=== PATIENT | female | born 1950 | race Two or more races ===

== ENCOUNTER 2022-11-09 21:17 | Emergency (ER) | payer MEDICARE, BC ==
[~2022-11-09] VITALS: Ht 160 cm; Wt 83.2 kg
--- NOTE | 2022-11-09 23:17 | NUR ---
PATIENT PLACED ON BEDSIDE COMMODE PROVIDED CALL LIGHT TO HELP GET PATIENT BACK TO BED
[2022-11-09 23:28] LABS: BASOPHILS % (AUTO) 0.2 % (0-1); EOSINOPHILS # (AUTO) 0.1 X10'3 (0-0.9); EOSINOPHILS % (AUTO) 0.5 % (0-6); HEMOGLOBIN 13.5 g/dl (12.0-16.0); LYMPHOCYTES # (AUTO) 0.7 X10'3 (1.1-4.8); LYMPHOCYTES % (AUTO) 7.6 % (21-51); MEAN CORPUSCULAR HEMOGLOBIN 29.9 PG (27.0-31.0); MEAN CORPUSCULAR HGB CONC 33.7 g/dL (33.0-36.5); MEAN CORPUSCULAR VOLUME 88.7 FL (78-98); MEAN PLATELET VOLUME 8.6 FL (7.4-10.4); MONOCYTES # (AUTO) 0.6 X10'3 (0-0.9); MONOCYTES % (AUTO) 5.9 % (2-12); NEUTROPHILS # (AUTO) 8.2 X10'3 (1.8-7.7); NEUTROPHILS % (AUTO) 85.8 % (42-75); PLATELET COUNT 190 X10'3 (140-440); RED BLOOD COUNT 4.51 X10'6 (4.20-5.60); RED CELL DISTRIBUTION WIDTH 13.9 % (11.5-14.5); WHITE BLOOD COUNT 9.5 X10'3 (4.5-11.0)
[2022-11-09 23:40] LABS: ALANINE AMINOTRANSFERASE 19 U/L (12-78); ALBUMIN 3.4 G/DL (3.4-5.0); ALBUMIN/GLOBULIN RATIO 1.1 (1.1-1.5); ALKALINE PHOSPHATASE 100 IU/L (46-116); ANION GAP 4 (8-16); ASPARTATE AMINO TRANSFERASE 19 U/L (10-37); BILIRUBIN,TOTAL 0.4 MG/DL (0.1-1.0); BLOOD UREA NITROGEN 21 MG/DL (7-18); BUN/CREATININE RATIO 22.8 (10.0-20.0); CALCIUM 9.1 MG/DL (8.5-10.1); CHLORIDE 104 MMOL/L (99-107); CREATININE 0.92 MG/DL (0.40-0.90); GLUCOSE 92 MG/DL (70-104); POTASSIUM 3.3 MMOL/L (3.5-5.1); SODIUM 141 MMOL/L (135-145); TOTAL CARBON DIOXIDE 33.3 MMOL/L (24-32); TOTAL PROTEIN 6.5 G/DL (6.4-8.2); eGFR 60 ML/MIN
[2022-11-10 01:02] VITALS: BP 150/76
== END 2022-11-10 01:04 | disposition home or self-care (01) ==
LOC: ER 21:18
DX: E11.65 Type 2 diabetes mellitus with hyperglycemia (principal); I10 Essential (primary) hypertension
CPT/HCPCS: 36415; 80053; 82948; 85025; 99283

== ENCOUNTER 2025-02-25 16:50 | Emergency (ER) | payer BC, MEDICARE ==
[~2025-02-25] VITALS: Ht 157.5 cm; Wt 87.2 kg
[2025-02-25 17:00] VITALS: BP 127/70; PULSE 75; TEMP 98.1; O2SAT 95
[2025-02-25] MEDS: bacitracin 15gm ointment TP ONE (18:22)
[2025-02-25 18:24] VITALS: RESP 16
--- NOTE | 2025-02-25 18:29 | Physician Documentation ---
History of Present Illness ~ Chief Complaint: Laceration Stated Complaint: FALL Time Seen by MD: 17:08 HPI Patient is seen today with complaints of a skin tear of her left lateral forearm where she fell on the carpet last night. She states she does take a blood thinner. She denies any head strike and denies any loss of consciousness. She has no other concern or complaint at this time. Tetanus Within 5 Years: Yes Medication Reconciliation Allergies: Coded Allergies: No Known Allergies (Unverified , 11/09/22) Past Medical History Past Medical History: Hypertension, Diabetes Past Surgical History: pacemaker Alcohol Use: None Drug Use: none Review of Systems Constitutional: Denies: chills, fever, weakness Eyes: Denies: pain, blurred vision ENT: Denies: ear pain, nose pain, throat pain, mouth pain Respiratory: Denies: cough, shortness of breath Cardiovascular: Denies: chest pain, palpitations Gastrointestinal: Denies: abdominal pain, nausea, vomiting Genitourinary: Denies: burning, dysuria Female Genitalia: Denies: vaginal discharge, pelvic pain Neurological: Denies: headache, dizziness Musculoskeletal: Denies: pain, swelling Integumentary: Denies: rash, lesions Allergic/Immunologic: Denies: hives, itching Hematologic/Lymphatic: Denies: no symptoms reported Psychiatric: Denies: depression, anxiety Physical Exam Vital Signs: Temperature: 98.1, Source: Temporal, Heart Rate: 75, Respiratory Rate: 16, BP: 127/70, Pulse Oximetry: 95, Weight: 87.200 Oxygen Flow Rate: 0 Physical Exam General: Awake and Alert, no acute distress. HEENT: Conjunctiva pink, Sclera clear, Mucus Membranes moist. Neck: Supple without masses and tenderness. Resp: Unlabored. Lungs clear to auscultation bilaterally. Heart: Regular Rate and rhythm, normal S1 and S2 without murmur, rub or gallop. Extremities: No cyanosis,clubbing or edema. Skin: Patient on exam has a small skin tear proximally 1.5 cm in length and 1 cm in diameter of the left lateral forearm proximally. Patient does have minimal bleeding at this time. Progress Results/Orders Results/Orders Completed Orders - MANJULA MATHIS Bacitracin Ointment (Bacitracin Ointment (02/25/25 18:00) Vital Signs 02/25/25 17:00 Temp 98.1 Pulse 75 Resp 16 B/P (MAP) 127/70 Pulse Ox 95 O2 Flow Rate 0 Medical Decision Making Findings Patient is seen today with complaints of a skin tear of her left lateral forearm where she fell on the carpet last night. She states she does take a blood thinner. She denies any head strike and denies any loss of consciousness. She has no other concern or complaint at this time. Patient did have wound dressed and cleaned by myself today as well as wound supplies sent home with the patient. Patient will perform daily dressing changes and will follow up with primary care in 2-3 days for wound check and/or return to the ED for wound check. Return to the ED with any worsening, concerning or changing symptoms. Departure Disposition: HOME / SELF CARE / HOMELESS Impression: Primary Impression: Skin tear Condition: Improved Discharge Instructions: Laceration Care, Adult, [id number] Additional Instructions: Patient did have wound dressed and cleaned by myself today as well as wound supplies sent home with the patient. Patient will perform daily dressing changes and will follow up with primary care in 2-3 days for wound check and/or return to the ED for wound check. Return to the ED with any worsening, concerning or changing symptoms. Referrals: NO PRIMARY CARE PROVIDER (PCP) Signature Scribe Signature: No scribe Attestation: No scribe MANJULA MATHIS PAC Feb 25, 2025 18:29
== END 2025-02-25 18:49 | disposition home or self-care (01) ==
LOC: ER 16:51
DX: S51.812A Laceration without foreign body of left forearm, initial encounter (principal); E11.9 Type 2 diabetes mellitus without complications; I10 Essential (primary) hypertension; Z95.0 Presence of cardiac pacemaker; W19.XXXA Unspecified fall, initial encounter; Y93.89 Activity, other specified; Y92.89 Other specified places as the place of occurrence of the external cause; Y99.8 Other external cause status
CPT/HCPCS: 99282; A6222; A6258; A6449

== ENCOUNTER 2025-02-26 15:12 | Emergency (ER) | payer MEDICARE ==
[~2025-02-26] VITALS: Ht 157.5 cm; Wt 64.0 kg
[2025-02-26 15:27] VITALS: PULSE 67; RESP 16; O2SAT 92
--- NOTE | 2025-02-26 15:53 | Physician Documentation ---
History of Present Illness ~ Chief Complaint: Wound Re-Check Stated Complaint: RECHECK Time Seen by MD: 15:39 HPI Patient is seen today for wound recheck of the left forearm. Patient was seen last night and wound was bandaged last night. Patient states the bandage shifted and she was concerned and wanted it rechecked. She states she has no one at home and has poor eyesight. She has no other concern or complaint at this time. Tetanus within 5 years?: Yes Medication Reconciliation Allergies: Coded Allergies: No Known Allergies (Unverified , 02/26/25) Past Medical History Past Medical History: Hypertension, Diabetes Past Surgical History: pacemaker Alcohol Use: None Drug Use: none Review of Systems Constitutional: Denies: chills, fever, weakness Eyes: Denies: pain, blurred vision ENT: Denies: ear pain, nose pain, throat pain, mouth pain Respiratory: Denies: cough, shortness of breath Cardiovascular: Denies: chest pain, palpitations Gastrointestinal: Denies: abdominal pain, nausea, vomiting Genitourinary: Denies: burning, dysuria Female Genitalia: Denies: vaginal discharge, pelvic pain Neurological: Denies: headache, dizziness Musculoskeletal: Denies: pain, swelling Integumentary: Denies: rash, lesions Allergic/Immunologic: Denies: hives, itching Hematologic/Lymphatic: Denies: no symptoms reported Psychiatric: Denies: depression, anxiety Physical Exam Vital Signs: Temperature: 96.7, Source: Temporal, Heart Rate: 67, Respiratory Rate: 16, Pulse Oximetry: 92, Weight: 64.050 Physical Exam General: Awake and Alert, no acute distress. HEENT: Conjunctiva pink, Sclera clear, Mucus Membranes moist. Neck: Supple without masses and tenderness. Resp: Unlabored. Lungs clear to auscultation bilaterally. Extremities: No cyanosis,clubbing or edema. Skin: Skin tear on extensor surface of left forearm appears to be healing well in his no longer actively bleeding. Patient has no surrounding erythema or induration or sign of infection. Progress Results/Orders Results/Orders Completed Orders - MANJULA MATHIS Bacitracin Ointment (Bacitracin Ointment (02/26/25 15:39) Vital Signs 02/26/25 15:27 Temp 96.7 Pulse 67 Resp 16 Pulse Ox 92 Medical Decision Making Findings Patient is seen today for wound recheck of the left forearm. Patient was seen last night and wound was bandaged last night. Patient states the bandage shifted and she was concerned and wanted it rechecked. She states she has no one at home and has poor eyesight. She has no other concern or complaint at this time. Bacitracin and Band-Aid were placed over small skin tear. Patient will change bandage daily. Follow up with primary care in 2-3 days or return to ED for wound check. Departure Disposition: HOME / SELF CARE / HOMELESS Impression: Primary Impression: Skin tear Condition: Improved Discharge Instructions: Wound Care, Adult Additional Instructions: Bacitracin and Band-Aid were placed over small skin tear. Patient will change bandage daily. Follow up with primary care in 2-3 days or return to ED for wound check. Referrals: NO PRIMARY CARE PROVIDER (PCP) Signature Scribe Signature: No scribe Attestation: No scribe MANJULA MATHIS PAC Feb 26, 2025 15:53
[2025-02-26 16:30] VITALS: TEMP 96.7
[2025-02-26] MEDS: bacitracin 15gm ointment TP STA (16:30)
== END 2025-02-26 16:33 | disposition home or self-care (01) ==
LOC: ER 15:12
DX: S51.812D Laceration without foreign body of left forearm, subsequent encounter (principal); E11.9 Type 2 diabetes mellitus without complications; I10 Essential (primary) hypertension; Z95.0 Presence of cardiac pacemaker; X58.XXXD Exposure to other specified factors, subsequent encounter
CPT/HCPCS: 99282

== ENCOUNTER 2025-03-05 19:26 | Emergency (ER) | payer MEDICARE ==
[~2025-03-05] VITALS: Ht 157.5 cm; Wt 90.9 kg
[2025-03-05 19:37] VITALS: BP 176/87; PULSE 65; RESP 18; O2SAT 95
--- NOTE | 2025-03-05 21:49 | Physician Documentation ---
History of Present Illness ~ Chief Complaint: Finger pain Stated Complaint: FINGER PAIN Time Seen by MD: 21:41 HPI 74-year-old female that presents to the emergency department for evaluation of swelling to the 2nd digit on her right hand. Patient reports that she has had some tenderness and swelling to the distal joint on the 2nd digit of her right hand for a day. Reports that she called her primary care provider's office and has an appointment for Monday but they told her if the finger become swollen to report to the emergency department. Patient reports that she does have a history of arthritis. She denies any known traumatic injuries to the finger. Tetanus within 5 years: Yes Medication Reconciliation Allergies: Coded Allergies: No Known Allergies (Unverified , 02/26/25) Scheduled Cephalexin*Monohydrate* (Keflex*), 1 CAP PO QID Past Medical History Past Medical History: Hypertension, Diabetes Past Surgical History: pacemaker Alcohol Use: None Drug Use: none Review of Systems ROS As stated above in the HPI, otherwise all systems are reviewed and negative. Physical Exam Vital Signs: Temperature: 97.5, Heart Rate: 65, Respiratory Rate: 18, BP: 176/87, Pulse Oximetry: 95, Weight: 90.900 Oxygen Flow Rate: 0 Physical Exam VITALS: Reviewed and as above. GENERAL: Alert, no apparent distress. HEENT: Normocephalic, atraumatic, PERRL, EOMI, dry mucosa, no erythema RESPIRATORY: Lungs clear, normal breath sounds, no respiratory distress. CHEST: No accessory muscle use, no retractions CV: Regular rate, rhythm, no edema, no murmur, No: JVD GI: Soft, non-tender, bowels sounds present, no rebound, guarding, or rigidity BACK: No CVA tenderness, or swelling MUSCULOSKELETAL No deformities, interphalangeal joint demonstrates mild derangement consistent with arthritic changes, swelling noted to the 2nd joint of the 2nd digit on the right hand., redness or warmth noted. He is tender with examination. SKIN: Warm and dry, no rash NEURO: Oriented x4, No motor or sensory deficit PSYCH: Normal mood and affect, no agitation Progress Results/Orders Results/Orders Vital Signs 03/05/25 19:37 Temp 97.5 Pulse 65 Resp 18 B/P (MAP) 176/87 Pulse Ox 95 O2 Flow Rate 0 Medical Decision Making Findings Patient presents with interphalangeal joint pain 2nd digit on the right hand. Given history, exam and workup patient likely has arthritis. I have low suspicion for fracture, dislocation, significant ligamentous injury, septic arthritis, gout flare, new autoimmune arthropathy, or gonococcal arthropathy. We will follow up with her primary care provider on Monday. Patient will return to the emergency department with any worsening or recurrent symptoms or any additional concerning symptoms that we discussed here today i.e. increased swelling increased redness warmth fever chills or any other concerning symptoms. Discussed with the patient that we would prescribe an antibiotic to her pharmacy but to please wait and discussed with her primary care provider on if symptoms worsen. Ibuprofen 600 mg every 6 hours as needed for inflammation and discomfort. General Diff Dx:Considerations: Include: Abrasion, Contusion, Fracture, Hematoma, Laceration, Malunion, Neurovascular injury, Open fracture, Sprain, Ulcer, Other Finger Diff Dx:Considerations: Include: Abrasion, Cellulitis, Contusion, Dislocation, Fracture, Hematoma, Laceration, Neurovascular injury, Open fracture, Subungual hematoma, Other Departure Disposition: HOME / SELF CARE / HOMELESS Impression: Primary Impression: Swollen finger Additional Impressions: Arthritis Tenderness Condition: Stable Discharge Instructions: Arthritis, [id number] Additional Instructions: Patient presents with interphalangeal joint pain 2nd digit on the right hand. Given history, exam and workup patient likely has arthritis. I have low ascencio spicion for fracture, dislocation, significant ligamentous injury, septic arthritis, gout flare, new autoimmune arthropathy, or gonococcal arthropathy. We will follow up with her primary care provider on Monday. Patient will return to the emergency department with any worsening or recurrent symptoms or any additional concerning symptoms that we discussed here today i.e. increased swelling increased redness warmth fever chills or any other concerning symptoms. Discussed with the patient that we would prescribe an antibiotic to her pharmacy but to please wait and discussed with her primary care provider on if symptoms worsen. Ibuprofen 600 mg every 6 hours as needed for inflammation and discomfort. Referrals: NO PRIMARY CARE PROVIDER (PCP) Prescriptions Cephalexin*Monohydrate* (Keflex*) 500 Mg Capsule 1 CAP PO QID for 7 Days, #28 CAP Prov: NANCY NGUYEN 03/05/25 Education Educated: Patient Educated regarding: diagnosis, treatment, need for follow up Signature Scribe Signature: A Attestation: Scribed for Nancy Nguyen by REYNALDO Hargrove . 03/05/25 21:52 NANCY NGUYEN Mar 05, 2025 21:49
[2025-03-05] MEDS ORDERED: CEPH-585 PO (21:51)
[2025-03-05 21:57] VITALS: TEMP 97.5
[2025-03-05] MEDS: ibuprofen tablet 400 MG TABLET PO ONE (22:02)
== END 2025-03-05 22:09 | disposition home or self-care (01) ==
LOC: ER 19:26
DX: M79.89 Other specified soft tissue disorders (principal); M19.90 Unspecified osteoarthritis, unspecified site; E11.9 Type 2 diabetes mellitus without complications; I10 Essential (primary) hypertension; Z95.0 Presence of cardiac pacemaker
CPT/HCPCS: 99283